=== PATIENT | female | born 1950 | race Caucasian/White ===

== ENCOUNTER 2016-06-18 16:04 | Inpatient (IN) | payer OTHER ==
[2016-06-18] MEDS ORDERED: ONDANSETRON 4 MG TAB.RAPDIS PO ONE (16:51)
--- NOTE | 2016-06-18 16:51 | ER Document Report ---
ED Medical Screen (RME) - General Stated Complaint: ABDOMINAL PAIN,VOMITING,FEVER Time seen by provider: 16:48 Mode of Arrival: Wheelchair Information source: Patient Notes: 65-year-old female presents to ED for abdominal pain constipation. She states she's torn up with fever has previous colon cancer been in remission for 5 years. She has a pain in the middle of her abdomen where she has a hernia level is 3-1/2. States she has vomited 3 or 4 times today. States she had some little round balls of BM this morning. She says she was had a hemicolectomy. I have greeted and performed a rapid initial assessment of this patient. A comprehensive ED assessment and evaluation of the patient, analysis of test results and completion of medical decision making process will be conducted by an additional ED providers. TRAVEL OUTSIDE OF THE [place] IN LAST 30 DAYS: No - Related Data Allergies/Adverse Reactions: Penicillins Allergy (Verified 03/25/16 11:43) Past Medical History Past Surgical History: Reports: Hx Thyroid Surgery - Immunizations Hx Diphtheria, Pertussis, Tetanus Vaccination: No Physical Exam - Vital signs Vitals: Temp Pulse Resp BP Pulse Ox 97.6 F 69 16 186/89 H 95 06/18/16 16:46 06/18/16 16:46 06/18/16 16:46 06/18/16 16:46 06/18/16 16:46 Course - Vital Signs Vital signs: Temp Pulse Resp BP Pulse Ox 97.6 F 69 16 186/89 H 95 06/18/16 16:46 06/18/16 16:46 06/18/16 16:46 06/18/16 16:46 06/18/16 16:46
[2016-06-18] MEDS ORDERED: IBUPROFEN 600 MG TABLET PO ONE (16:52)
[2016-06-18 17:25] LABS: ABSOLUTE BASOPHILS # (AUTO) 0.1 10^3/uL (0.0-0.2); ABSOLUTE LYMPHOCYTES (AUTO) 1.2 10^3/uL (0.5-4.7); ABSOLUTE MONOCYTES (AUTO) 0.7 10^3/uL (0.1-1.4); ABSOLUTE NEUT (AUTO) 17.5 10^3/uL (1.7-8.2); BASOPHILS % (AUTO) 0.3 % (0-2); EOSINOPHILS % (AUTO) 0.1 % (0-6); HEMATOCRIT 47.8 % (36.0-47.0); HEMOGLOBIN 15.9 g/dL (12.0-15.5); HGB HCT DIFFERENCE -0.1; MEAN CORPUSCULAR HEMOGLOBIN 32.3 pg (27.0-33.4); MEAN CORPUSCULAR HGB CONC 33.3 g/dL (32.0-36.0); MEAN CORPUSCULAR VOLUME 97 fl (80-97); MONOCYTES % (AUTO) 3.4 % (3-13); RED BLOOD COUNT 4.93 10^6/uL (3.72-5.28); RED CELL DISTRIBUTION WIDTH 15.1 % (11.5-14.0); SEGMENTED NEUTROPHILS % (AUTO) 90.2 % (42-78); WHITE BLOOD COUNT 19.5 10^3/uL (4.0-10.5)
[2016-06-18 17:30] LABS: APPEARANCE,URINE SLIGHTLY-CLOUDY; BILIRUBIN,URINE NEGATIVE (NEGATIVE); GLUCOSE, URINE NEGATIVE (NEGATIVE); KETONES,URINE 80 mg/dL (NEGATIVE); LEUKOCYTE ESTERASE,URINE NEGATIVE (NEGATIVE); NITRITE,URINE NEGATIVE (NEGATIVE); PROTEIN,URINE 100 mg/dL (NEGATIVE); URINE SPECIFIC GRAVITY 1.024
[2016-06-18 17:37] LABS: ALANINE AMINOTRANSFERASE 25 U/L (9-52); ALBUMIN 5.1 g/dL (3.5-5.0); ALKALINE PHOSPHATASE 88 U/L (38-126); ANION GAP 16 (5-19); ASPARTATE AMINO TRANSFERASE 19 U/L (14-36); BILIRUBIN,DIRECT 0.2 mg/dL (0.0-0.4); BILIRUBIN,TOTAL 0.8 mg/dL (0.2-1.3); BLOOD UREA NITROGEN 9 mg/dL (7-20); CALCIUM 10.7 mg/dL (8.4-10.2); CARBON DIOXIDE 26 mmol/L (22-30); CHLORIDE 97 mmol/L (98-107); CREATININE RESULT 0.62 mg/dL (0.52-1.25); GLUCOSE 195 mg/dL (75-110); POTASSIUM 4.4 mmol/L (3.6-5.0); TOTAL PROTEIN 7.8 g/dL (6.3-8.2)
[2016-06-18] MEDS ORDERED: NORMAL SALINE 1000 ML 1,000 ML IV ONE (23:01)
[2016-06-18] MEDS ORDERED: ONDANSETRON HCL INJ/PF 4 MG/2 ML SDV IV ONE (23:47)
[2016-06-18] MEDS ORDERED: IPRATROPIUM/ALBUTEROL 0.5-2.5 MG/3 ML AMPUL NEB ONE (23:47)
[2016-06-19] MEDS ORDERED: MIDAZOLAM 2 MG/2 ML INJ IV ONE (01:46)
[2016-06-19] MEDS ORDERED: RINGERS SOLUTION,LACTATED 1,000 ML IV PRN (02:13)
--- NOTE | 2016-06-19 02:19 | ER Document Report ---
ED General - General Chief Complaint: Abdominal Pain Stated Complaint: ABDOMINAL PAIN,VOMITING,FEVER Mode of Arrival: Wheelchair Notes: Patient is a 65-year-old female with past medical history of colon cancer in remission for the past 5 years who did undergo a right hemicolectomy as part of her management of colon cancer who presents with 24 hours of progressively worsening nausea, bilious vomiting and abdominal pain. Does describe abdominal pain is a diffuse, mild, cramping pain. Nothing improves or worsens the pain. She has not been able to tolerate any oral intake today secondary to her vomiting. Denies a history of similar symptoms in the past. She has not seen her primary care doctor regarding today's concerns. TRAVEL OUTSIDE OF THE [place] IN LAST 30 DAYS: No - Related Data Allergies/Adverse Reactions: Penicillins Allergy (Verified 06/18/16 16:50) Past Medical History - General Information source: Patient - Social History Smoking Status: Current Every Day Smoker Chew tobacco use (# tins/day): No Frequency of alcohol use: None Drug Abuse: None Lives with: Spouse/Significant other Family History: CAD, COPD Patient has suicidal ideation: No Patient has homicidal ideation: No Renal/ Medical History: Denies: Hx Peritoneal Dialysis Past Surgical History: Reports: Hx Thyroid Surgery - Immunizations Hx Diphtheria, Pertussis, Tetanus Vaccination: No Review of Systems - Review of Systems Notes: Constitutional: Negative for fever. HENT: Negative for sore throat. Eyes: Negative for visual changes. Cardiovascular: Negative for chest pain. Respiratory: Negative for shortness of breath. Gastrointestinal: Positive for abdominal pain and vomiting Genitourinary: Negative for dysuria. Musculoskeletal: Negative for back pain. Skin: Negative for rash. Neurological: Negative for headaches, weakness or numbness. 10 point ROS negative except as marked above and in HPI. Physical Exam - Vital signs Vitals: Temp Pulse Resp BP Pulse Ox 97.6 F 69 16 186/89 H 95 06/18/16 16:46 06/18/16 16:46 06/18/16 16:46 06/18/16 16:46 06/18/16 16:46 Interpretation: Hypertensive Notes: PHYSICAL EXAMINATION: GENERAL: Appears mildly comfortable but in no acute distress HEAD: Atraumatic, normocephalic. EYES: Pupils equal round and reactive to light, extraocular movements intact, sclera anicteric, conjunctiva are normal. ENT: nares patent, oropharynx clear without exudates. Dry mucous membranes. NECK: Normal range of motion, supple without lymphadenopathy LUNGS: Breath sounds clear to auscultation bilaterally and equal. No wheezes rales or rhonchi. HEART: Regular rate and rhythm without murmurs ABDOMEN: Soft, diffuse mild tenderness to palpation without rebound or guarding. Diminished bowel sounds. EXTREMITIES: Normal range of motion, no pitting or edema. No cyanosis. NEUROLOGICAL: No focal neurological deficits. Moves all extremities spontaneously and on command. PSYCH: Normal mood, normal affect. SKIN: Warm, Dry, normal turgor, no rashes or lesions noted. Course - Re-evaluation Re-evalutation: 06/19/16 02:14 Patient presents with signs and symptoms that are clinically consistent with an acute bowel obstruction likely mechanical in nature given her history of right hemicolectomy in the setting of prior colon cancer. Patient did have diminished bowel sounds and examined diffuse mild tenderness without rebound or guarding. Laboratories notable for prominent leukocytosis but are otherwise unremarkable. CT scan of the abdomen and pelvis with IV contrast obtained. This did demonstrate a mechanical small bowel structure with proximal small bowel dilation. An NG tube will be placed with Versed sedation. I discussed this case with the surgeon phone technician who will admit. - Vital Signs Vital signs: Temp Pulse Resp BP Pulse Ox 97.6 F 69 16 186/89 H 95 06/18/16 16:46 06/18/16 16:46 06/18/16 16:46 06/18/16 16:46 06/18/16 16:46 - Laboratory Result Diagrams: 06/18/16 17:10 06/18/16 17:10 Laboratory results interpreted by me: 06/18/16 06/18/16 06/18/16 17:05 17:10 17:10 WBC 19.5 H Hgb 15.9 H Hct 47.8 H RDW 15.1 H Seg Neutrophils % 90.2 H Lymphocytes % 6.0 L Absolute Neutrophils 17.5 H Chloride 97 L Glucose 195 H Calcium 10.7 H Albumin 5.1 H Urine Protein 100 H Urine Ketones 80 H Urine Urobilinogen 2.0 H - Diagnostic Test Radiology reviewed: Reports reviewed Discharge - Discharge Clinical Impression: Bowel obstruction Qualifiers: Intestinal obstruction type: obstruction due to adhesions Qualified Code(s): K56.5 - Intestinal adhesions [bands] with obstruction (postprocedural) ( postinfection) Condition: Fair Disposition: ADMITTED INPATIENT Admitting Provider: Surgicalist - [facility] Admitted: Surgical Floor Referrals: PREET GOLDSMITH MD [Primary Care Provider] - Follow up as needed
[2016-06-19] MEDS ORDERED: LIDOCAINE 2% JELLY 5 ML TUBE TOP ONE (02:43)
[2016-06-19] MEDS: METRONIDAZOLE 500 MG/NS RTU 100 ML IV SCH ×4 (03:07→23:37)
[2016-06-19] MEDS: HYDROMORPHONE HCL INJ/PF 2 MG/ML AMPULE IV PRN ×4 (03:11→23:37)
[2016-06-19] MEDS: LEVOFLOXACIN 500 MG/D5W RTU 500 MG/100 ML RTUPB IV SCH (05:54)
[2016-06-19 06:23] LABS: ABSOLUTE LYMPHOCYTES (AUTO) 0.8 10^3/uL (0.5-4.7); ABSOLUTE MONOCYTES (AUTO) 0.4 10^3/uL (0.1-1.4); ABSOLUTE NEUT (AUTO) 7.7 10^3/uL (1.7-8.2); BASOPHILS % (AUTO) 0.3 % (0-2); HEMATOCRIT 39.2 % (36.0-47.0); HGB HCT DIFFERENCE 1.3; LYMPHOCYTES % (AUTO) 9.3 % (13-45); MEAN CORPUSCULAR HEMOGLOBIN 33.1 pg (27.0-33.4); MEAN CORPUSCULAR HGB CONC 34.4 g/dL (32.0-36.0); MEAN CORPUSCULAR VOLUME 96 fl (80-97); MONOCYTES % (AUTO) 4.5 % (3-13); RED BLOOD COUNT 4.07 10^6/uL (3.72-5.28); RED CELL DISTRIBUTION WIDTH 15.1 % (11.5-14.0); SEGMENTED NEUTROPHILS % (AUTO) 85.9 % (42-78); WHITE BLOOD COUNT 8.9 10^3/uL (4.0-10.5)
[2016-06-19 06:29] LABS: ANION GAP 11 (5-19); BLOOD UREA NITROGEN 12 mg/dL (7-20); CALCIUM 9.4 mg/dL (8.4-10.2); CARBON DIOXIDE 25 mmol/L (22-30); CHLORIDE 104 mmol/L (98-107); CREATININE RESULT 0.61 mg/dL (0.52-1.25); GLUCOSE 136 mg/dL (75-110); SODIUM 139.5 mmol/L (137-145)
[2016-06-19 06:30] LABS: HEMOGLOBIN 13.5 g/dL (12.0-15.5)
--- NOTE | 2016-06-19 08:10 | EKG REPORT ---
SEVERITY:- ABNORMAL ECG - SINUS RHYTHM LEFT AXIS DEVIATION PROBABLE ANTEROSEPTAL INFARCT, AGE INDETERM : Confirmed by: Colin Navarro MD 19-Jun-2016 08:09:21
[2016-06-19] MEDS: FAMOTIDINE INJ/PF 20 MG/2 ML SDV IV SCH ×2 (09:52→22:19)
[2016-06-19] MEDS: ENOXAPARIN SODIUM INJ 40 MG/0.4 ML DISP.SYRIN SUBCUT SCH (09:53)
[2016-06-19] MEDS ORDERED: LEVOFLOXACIN 500 MG/D5W RTU 500 MG/100 ML RTUPB IV SCH (10:00)
[2016-06-19] MEDS: RINGERS SOLUTION,LACTATED 1,000 ML IV PRN (14:34)
--- NOTE | 2016-06-19 18:38 | HISTORY AND PHYSICAL E ---
History and Physical NAME: SUDHEER MADERA : 1950 AGE: 65Y ADMITTED: 06/19/2016 ROOM: 210 REASON FOR ADMISSION: Small bowel obstruction characterized by abdominal pain, vomiting, and fever. HISTORY OF PRESENT ILLNESS: This 64-year-old female was in her usual state of health until the day of admission when she complained of mid abdominal pain accompanied by 3 or 4 episodes of vomiting. The patient had had small bowel movements morning of admission but has had no BM or flatus since. The patient has had a right hemicolectomy in the past for cancer and has had follow-up colonoscopies but stated that the pain was reminiscent of the pain she had experienced when she developed cancer 5 years ago. The patient presented to the Emergency Room because of the vomiting 3 or 4 times and the gaseousness, but the pain which was 8 out of 10 began as she arrived in the Emergency Room. The patient was examined and found to have stable vital signs. Abdominal exam revealed no tenderness, guarding, rebound, or peritoneal signs, but the patient's white count was noted to be 19,500. The patient then underwent a CT scan of the abdomen which revealed mechanical small bowel obstruction with dilatation of the proximal small bowel with normal distal small bowel. The patient has a small umbilical hernia that is not incarcerated and a previous right hemicolectomy. For this reason, the patient was admitted to my service for conservative management and possible surgical intervention. PAST MEDICAL HISTORY: The patient has no history of diabetes mellitus, hypertension, cardiac, renal, pulmonary, liver disease or bleeding tendencies. No history of anesthesia problems in the family. ALLERGIES: The patient is allergic to PENICILLIN. PAST SURGICAL HISTORY: As per history of present illness, the patient is status post right hemicolectomy for cancer. REVIEW OF SYSTEMS: The patient has no symptoms referable to the constitutional system. ENT, cardiovascular, respiratory systems are negative. The patient has symptoms as in history of present illness as gastrointestinal system. The patient denies any symptoms referable to the genitourinary, musculoskeletal, integumentary, lymphocytic, endocrine, or psychiatric systems. PHYSICAL EXAMINATION: GENERAL: Physical examination reveals a 65-year-old female who is normally nourished, normally developed who is in no acute distress. HEENT: There is no conjunctival pallor or scleral icterus. Mucous membranes are moist and pink. NECK: Supple without nodes, masses, thyroid, JVD, or bruits. Trachea is midline. CHEST: Chest wall shows good excursions. The lungs are clear anteriorly with good entry bilaterally. CARDIOVASCULAR SYSTEM: S1, S2 audible without murmurs or gallops. ABDOMEN: Patient's abdomen is soft. Bowel sounds are hyperactive, but there was no tenderness, guarding or rebound. No organomegaly or masses are noted. The patient has a small umbilical hernia that is not incarcerated. EXTREMITIES: Full range of motion. IMPRESSION: Small bowel obstruction. PLAN: Patient will undergo NG tube insertion with IV fluids. We will keep her n.p.o. We will encourage ambulation and out of bed in the chair to promote conservative management of her small bowel obstruction. Should she not improve, then exploratory laparotomy will be recommended. DICTATING PHYSICIAN: JORDAN HO M.D. [id number] PHY#: [id number] ID: [id number] JOB#: [id number] ACCT: [id number] cc: >
[2016-06-20] MEDS: HYDROMORPHONE HCL INJ/PF 2 MG/ML AMPULE IV PRN ×3 (03:32→14:56)
[2016-06-20] MEDS: LEVOFLOXACIN 500 MG/D5W RTU 500 MG/100 ML RTUPB IV SCH (04:48)
[2016-06-20] MEDS: METRONIDAZOLE 500 MG/NS RTU 100 ML IV SCH ×4 (06:00→23:17)
[2016-06-20 07:25] LABS: ABSOLUTE BASOPHILS # (AUTO) 0.1 10^3/uL (0.0-0.2); ABSOLUTE LYMPHOCYTES (AUTO) 0.9 10^3/uL (0.5-4.7); ABSOLUTE MONOCYTES (AUTO) 0.4 10^3/uL (0.1-1.4); ABSOLUTE NEUT (AUTO) 10.7 10^3/uL (1.7-8.2); HEMATOCRIT 37.6 % (36.0-47.0); HEMOGLOBIN 12.7 g/dL (12.0-15.5); HGB HCT DIFFERENCE 0.5; LYMPHOCYTES % (AUTO) 7.6 % (13-45); MEAN CORPUSCULAR HEMOGLOBIN 32.9 pg (27.0-33.4); MEAN CORPUSCULAR HGB CONC 33.8 g/dL (32.0-36.0); MEAN CORPUSCULAR VOLUME 97 fl (80-97); MONOCYTES % (AUTO) 3.3 % (3-13); RED BLOOD COUNT 3.86 10^6/uL (3.72-5.28); RED CELL DISTRIBUTION WIDTH 15.2 % (11.5-14.0); SEGMENTED NEUTROPHILS % (AUTO) 88.1 % (42-78); WHITE BLOOD COUNT 12.2 10^3/uL (4.0-10.5)
[2016-06-20] MEDS ORDERED: ALBUTEROL SULFATE 0.083% NEB 2.5 MG/3 ML AMPUL NEB PRN (08:48)
[2016-06-20] MEDS: LEVOTHYROXINE SODIUM 0.1 MG TABLET PO SCH (10:12)
[2016-06-20] MEDS: FAMOTIDINE INJ/PF 20 MG/2 ML SDV IV SCH ×2 (10:13→21:39)
[2016-06-20] MEDS: LEVOTHYROXINE SODIUM 0.075 MG TABLET PO SCH (10:13)
[2016-06-20] MEDS: ENOXAPARIN SODIUM INJ 40 MG/0.4 ML DISP.SYRIN SUBCUT SCH (10:16)
[2016-06-20] MEDS: IPRATROPIUM/ALBUTEROL 120 PUFF/4 GM MDI IH SCH ×4 (10:18→21:39)
[2016-06-20] MEDS ORDERED: FLUOXETINE HCL 20 MG CAPSULE PO ONE (11:00)
[2016-06-20] MEDS: RINGERS SOLUTION,LACTATED 1,000 ML IV PRN ×2 (11:54→23:18)
[2016-06-20] MEDS ORDERED: LEVOTHYROXINE SODIUM 175 MG PO SCH (22:00)
--- NOTE | 2016-06-21 00:18 | PROGRESS NOTE E ---
Progress Note NAME: SUDHEER MADERA : 1950 AGE: 65Y DATE: 06/20/2016 ROOM: 210 OBJECTIVE: GENERAL: The patient is lying comfortably in bed. Has not had a bowel movement or passed any gas yet. VITAL SIGNS: Blood pressure 144/85, temperature 99, pulse 74, respirations 18, saturations 99% on room air. LUNGS: The patient's lungs are clear bilaterally, equal entry. Pulses regular. ABDOMEN: Soft with hypoactive bowel sounds, nontender. Umbilical hernia remains reduced. ASSESSMENT: DAY 2 OF CONSERVATIVE MANAGEMENT FOR SMALL BOWEL OBSTRUCTION. PLAN: If the patient does not open up within the next 24 hours, then exploratory lap for small bowel obstruction will be indicated. I have discussed this with the patient who is in agreement. DICTATING PHYSICIAN: JORDAN HO M.D. [id number] PHY#: [id number] ID: [id number] JOB#: [id number] ACCT: [id number] cc: >
[2016-06-21] MEDS: HYDROMORPHONE HCL INJ/PF 2 MG/ML AMPULE IV PRN ×4 (01:27→20:34)
[2016-06-21] MEDS: LEVOFLOXACIN 500 MG/D5W RTU 500 MG/100 ML RTUPB IV SCH (04:46)
[2016-06-21] MEDS: METRONIDAZOLE 500 MG/NS RTU 100 ML IV SCH ×4 (06:14→23:33)
[2016-06-21] MEDS: ENOXAPARIN SODIUM INJ 40 MG/0.4 ML DISP.SYRIN SUBCUT SCH (10:16)
[2016-06-21] MEDS: FAMOTIDINE INJ/PF 20 MG/2 ML SDV IV SCH ×2 (10:17→21:17)
--- NOTE | 2016-06-21 10:52 | PDOC PROGRESS REPORT ---
Subjective Progress Note for:: 06/21/16 Subjective:: feels better. had bowel movement. still feel midly distended. Physical Exam Vital Signs: Temp Pulse Resp BP Pulse Ox 98.9 F 73 16 141/81 H 97 06/21/16 07:54 06/21/16 09:12 06/21/16 09:12 06/21/16 07:54 06/21/16 09:12 Intake & Output 06/20/16 06/21/16 06/22/16 06:59 06:59 06:59 Intake Total 1325 1500 Output Total 850 650 Balance 475 850 General appearance: PRESENT: no acute distress, cooperative Respiratory exam: PRESENT: clear to auscultation gustavo Cardiovascular exam: PRESENT: RRR GI/Abdominal exam: PRESENT: other - soft, mildly distended, mild mid abdominal tenderness with no peritoneal signs. Results Laboratory Results: 06/20/16 06:07 06/19/16 06:05 Impressions: Abdomen/Pelvis CT 06/18/16 23:01 IMPRESSION: 1. MECHANICAL SMALL BOWEL OBSTRUCTION. PROXIMAL SMALL BOWEL DILATED AND DISTAL SMALL BOWEL NOT DISTENDED. 2. SMALL UMBILICAL HERNIA. 3. PREVIOUS RIGHT HEMICOLECTOMY. Chest X-Ray 06/19/16 00:00 IMPRESSION: NO ACUTE RADIOGRAPHIC FINDING IN THE CHEST. Abdomen X-Ray 06/21/16 00:00 IMPRESSION: Ileus or partial small bowel obstruction. Assessment & Plan - Diagnosis (1) Small bowel obstruction Is this a current diagnosis for this admission?: YesPlan: xrays are concerning for sbo but pt just had bm and feels better. still mildly distended and pt not back to baseline yet. hold off xlap in light of bm. repeat xrays in am.
[2016-06-21] MEDS: LEVOTHYROXINE SODIUM 0.1 MG TABLET PO SCH (14:05)
[2016-06-21] MEDS: FLUOXETINE HCL 20 MG CAPSULE PO SCH (14:05)
[2016-06-21] MEDS: IPRATROPIUM/ALBUTEROL 120 PUFF/4 GM MDI IH SCH ×4 (14:05→21:16)
[2016-06-21] MEDS: LEVOTHYROXINE SODIUM 0.075 MG TABLET PO SCH (14:05)
[2016-06-21] MEDS: RINGERS SOLUTION,LACTATED 1,000 ML IV PRN (23:40)
[2016-06-22] MEDS: HYDROMORPHONE HCL INJ/PF 2 MG/ML AMPULE IV PRN (04:44)
[2016-06-22] MEDS: METRONIDAZOLE 500 MG/NS RTU 100 ML IV SCH ×3 (05:29→19:22)
[2016-06-22] MEDS: LEVOFLOXACIN 500 MG/D5W RTU 500 MG/100 ML RTUPB IV SCH (06:33)
[2016-06-22] MEDS: FAMOTIDINE INJ/PF 20 MG/2 ML SDV IV SCH (09:57)
[2016-06-22] MEDS: LEVOTHYROXINE SODIUM 0.1 MG TABLET PO SCH (09:58)
[2016-06-22] MEDS: FLUOXETINE HCL 20 MG CAPSULE PO SCH (09:58)
[2016-06-22] MEDS: IPRATROPIUM/ALBUTEROL 120 PUFF/4 GM MDI IH SCH ×3 (09:58→19:22)
[2016-06-22] MEDS: LEVOTHYROXINE SODIUM 0.075 MG TABLET PO SCH (09:58)
[2016-06-22] MEDS: ENOXAPARIN SODIUM INJ 40 MG/0.4 ML DISP.SYRIN SUBCUT SCH (09:58)
[2016-06-22] MEDS: RINGERS SOLUTION,LACTATED 1,000 ML IV PRN (10:39)
[2016-06-22] MEDS: FLUTICASONE/SALMETEROL DISKUS 250-50 MCG/DOSE IH SCH (12:17)
[2016-06-22] MEDS ORDERED: LIDOCAINE 2% INJ-PF (20 MG/ML) 10 ML AMPUL ONE (15:18)
[2016-06-22] MEDS ORDERED: ROCURONIUM BROMIDE INJ 50 MG/5 ML VIAL IV ONE (15:18)
[2016-06-22] MEDS ORDERED: SUCCINYLCHOLINE CHLORIDE INJ 200 MG/10 ML VIAL ONE (15:18)
[2016-06-22] MEDS ORDERED: ONDANSETRON HCL INJ/PF 4 MG/2 ML SDV ONE (15:18)
[2016-06-22] MEDS ORDERED: DEXAMETHASONE SOD PHOSPHATE INJ 4 MG/1 ML VIAL ONE (15:18)
[2016-06-22] MEDS ORDERED: NEOSTIGMINE METHYLSULFATE 10 MG/10 ML VIAL ONE (15:18)
[2016-06-22] MEDS ORDERED: GLYCOPYRROLATE INJ 0.4 MG/2 ML VIAL ONE (15:18)
[2016-06-22] MEDS ORDERED: FENTANYL CITRATE INJ/PF 250 MCG/5 ML AMPULE ONE ×2 (15:32→19:07)
[2016-06-22] MEDS ORDERED: EPHEDRINE SULFATE INJ 50 MG/1 ML AMPULE ONE ×2 (15:32→19:07)
[2016-06-22] MEDS ORDERED: MIDAZOLAM 2 MG/2 ML INJ ONE ×2 (15:32→19:07)
[2016-06-22] MEDS ORDERED: MORPHINE SULFATE 10 MG/ML INJ ONE ×2 (15:33→19:08)
[2016-06-22] MEDS ORDERED: ACETAMINOPHEN 0 ML IV ONE (15:33)
[2016-06-22] MEDS ORDERED: PROPOFOL INJ 200 MG/20 ML VIAL IV ONE ×2 (15:33→19:08)
[2016-06-22 17:34] LABS: ABSOLUTE EOSINOPHILS # (AUTO) 0.1 10^3/uL (0.0-0.6); ABSOLUTE LYMPHOCYTES (AUTO) 1.1 10^3/uL (0.5-4.7); ABSOLUTE MONOCYTES (AUTO) 0.8 10^3/uL (0.1-1.4); ABSOLUTE NEUT (AUTO) 7.9 10^3/uL (1.7-8.2); BASOPHILS % (AUTO) 0.3 % (0-2); EOSINOPHILS % (AUTO) 0.5 % (0-6); HEMOGLOBIN 12.8 g/dL (12.0-15.5); HGB HCT DIFFERENCE 0.4; LYMPHOCYTES % (AUTO) 11.1 % (13-45); MEAN CORPUSCULAR HEMOGLOBIN 32.4 pg (27.0-33.4); MEAN CORPUSCULAR HGB CONC 33.6 g/dL (32.0-36.0); MEAN CORPUSCULAR VOLUME 96 fl (80-97); MONOCYTES % (AUTO) 8.5 % (3-13); RED BLOOD COUNT 3.95 10^6/uL (3.72-5.28); RED CELL DISTRIBUTION WIDTH 15.1 % (11.5-14.0); SEGMENTED NEUTROPHILS % (AUTO) 79.6 % (42-78); WHITE BLOOD COUNT 9.9 10^3/uL (4.0-10.5)
[2016-06-22 17:58] LABS: BLOOD UREA NITROGEN 6 mg/dL (7-20); CALCIUM 9.1 mg/dL (8.4-10.2); CARBON DIOXIDE 17 mmol/L (22-30); CREATININE RESULT 0.58 mg/dL (0.52-1.25); GLUCOSE 70 mg/dL (75-110); POTASSIUM 3.1 mmol/L (3.6-5.0)
[2016-06-22 18:08] LABS: CHLORIDE 100 mmol/L (98-107); SODIUM 137.6 mmol/L (137-145)
[2016-06-22 18:20] LABS: ANION GAP 21 (5-19)
[2016-06-22] MEDS ORDERED: DEXMEDETOMIDINE INJ 80 MCG/20 ML VIAL IV ONE (19:08)
[2016-06-22] MEDS ORDERED: ACETAMINOPHEN 100 ML IV ONE (19:08)
[2016-06-22] MEDS ORDERED: BUPIVACAINE HCL 0.5 % INJ/PF 30 ML SDV INJ ONE (19:50)
[2016-06-22] MEDS ORDERED: BUPIVACAINE HCL 0.5 % INJ/PF 30 ML SDV ONE (19:52)
[2016-06-22] MEDS ORDERED: MEPERIDINE HCL/PF INJ 25 MG/1 ML DISP.SYRIN IV PRN (21:23)
[2016-06-22] MEDS ORDERED: ONDANSETRON HCL INJ/PF 4 MG/2 ML SDV IV PRN (21:23)
[2016-06-22] MEDS ORDERED: PROMETHAZINE HCL INJ 25 MG/1 ML VIAL IV PRN ×2 (21:23)
[2016-06-22] MEDS ORDERED: FENTANYL CITRATE INJ/PF 100 MCG/2 ML AMPUL IV PRN ×3 (21:23)
[2016-06-22] MEDS ORDERED: DIPHENHYDRAMINE HCL 50 MG/ML VIAL IV PRN (21:23)
[2016-06-22] MEDS ORDERED: MORPHINE SULFATE 10 MG/ML INJ IV PRN (21:23)
--- NOTE | 2016-06-22 21:46 | Brief Operative Note ---
BRIEF OPERATIVE REPORT DATE OF SURGERY: 06/22/16 TIME OF SURGERY: 21:00 PREOPERATIVE DIAGNOSIS: Small Bowel Obstruction POSTOPERATIVE DIAGNOSIS: Same SURGEON: JORDAN HO FINDINGS: SBO secondary to adhesions COMPLICATIONS: None ESTIMATED BLOOD LOSS: 100cc TISSUE REMOVED OR ALTERED: None TECHNICAL PROCEDURE: Exploratory Laparotomy for SBO, with lysis of adhesions.
--- NOTE | 2016-06-22 22:28 | OPERATIVE REPORT E ---
Operative Report NAME: SUHDEER MADERA : 1950 AGE: 65Y DATE OF SURGERY: 06/22/2016 ROOM: 210 PREOPERATIVE DIAGNOSIS: Small bowel obstruction. POSTOPERATIVE DIAGNOSIS: Small bowel obstruction secondary to multiple adhesions. OPERATION: Exploratory laparotomy for small bowel obstruction with extensive lysis of adhesions and decompression of the small bowel. SURGEON: JORDAN HO M.D. ANESTHESIA: General. REPLACEMENT: Crystalloids. DRAINS: None. COMPLICATIONS: None. CONDITION: Stable. FINDINGS: The patient had multiple intraabdominal adhesions which were causing proximal small bowel obstruction. The patient also had 3 ventral hernias which were repaired on the way out as we closed the fascia. INDICATION FOR PROCEDURE: This 65-year-old female was in her usual state of health when she developed nausea, vomiting or abdominal pain and was admitted to the hospital on 06/19/2016. The patient was on NG tube decompression, IV fluids and n.p.o. She continued to have markedly dilated loops of small bowel in spite of having 3 bowel movements in the last 48 hours. Because of the persistent dilatation on the x-ray of small bowel loops, the patient was brought to the operating room for definitive intervention. PROCEDURE: The patient was brought to the operating suite and placed in a supine position on the operating room table. Monitoring devices were attached and IV sedation was administered, followed by the induction of general endotracheal anesthesia. The patient's abdomen was then prepped and draped in the usual sterile manner, and then an incision was made just above the umbilicus. The incision was carried through the skin and subcutaneous tissue down to the linea alba. The patient's umbilical hernia was noted and we placed two 0-Vicryl sutures on either side of the umbilical hernia. We opened the hernia sac and placed a trocar through the hernia sac, through the umbilical hernia defect into the abdomen and insufflated the abdomen. We noted that there were bowel loops that were attached to the anterior abdominal wall and there was no evidence of any single adhesion that we could visualize laparoscopically. We then took out the laparoscope and abandoned any further attempts to do this laparoscopically and a midline incision was made. The incision was carried from the epigastric region to the suprapubic region. The incision was carried through the skin and subcutaneous tissue down to the linea alba and the peritoneum was opened. We eviscerated the entire small bowel and noted jejunal adhesion causing obstruction. This jejunal-jejunal adhesion was taken down using sharp dissection which released the obstruction. We then ran the bowel from the ligament of Treitz to the ileocecal junction and we lysed all adhesions between the jejunal-jejunal, jejunal-ileal as well as ileocolic and jejunal colic. After taking down all adhesions, we ran the bowel from the ligament of Treitz to the ileocecal junction and noted no further adhesions. We then placed our pursestring suture in the mid jejunum and made an opening in the jejunum at the antimesenteric border. We inserted a nasogastric tube and directed it distally and proximally, and we decompressed the small bowel. We then removed the NG tube and closed the pursestring suture and then imbricated it using 3-0 silk. After decompressing the bowel, we returned the bowel to the abdominal cavity and proceeded to close the abdomen. The fascia was closed using #1 PDS and once this was completed, we obviously repaired all the 3 ventral hernias that were encountered at the time of opening the abdomen. After closing the fascia, we then closed the skin using skin edgard. The patient tolerated the procedure well. Sponge and instrument counts were correct. The patient was discharged to the PACU in stable condition. DICTATING PHYSICIAN: JORDAN HO M.D. [id number] PHY#: [id number] ID: [id number] JOB#: [id number] ACCT: [id number] cc:JORDAN HO M.D. >
[2016-06-22] MEDS: FENTANYL CITRATE INJ/PF 100 MCG/2 ML AMPUL ONE ×2 (22:30→22:40)
[2016-06-23] MEDS: HYDROMORPHONE HCL INJ/PF 2 MG/ML AMPULE IV PRN ×7 (00:22→23:29)
[2016-06-23] MEDS: FAMOTIDINE INJ/PF 20 MG/2 ML SDV IV SCH ×2 (03:24→10:05)
[2016-06-23] MEDS: FLUTICASONE/SALMETEROL DISKUS 250-50 MCG/DOSE IH SCH ×3 (03:24→21:49)
[2016-06-23] MEDS: IPRATROPIUM/ALBUTEROL 120 PUFF/4 GM MDI IH SCH ×5 (03:24→21:49)
[2016-06-23] MEDS: METRONIDAZOLE 500 MG/NS RTU 100 ML IV SCH ×5 (03:24→23:30)
[2016-06-23] MEDS: RINGERS SOLUTION,LACTATED 1,000 ML IV PRN ×2 (04:26→23:39)
[2016-06-23] MEDS: LEVOFLOXACIN 500 MG/D5W RTU 500 MG/100 ML RTUPB IV SCH (06:29)
[2016-06-23] MEDS: LEVOTHYROXINE SODIUM 0.075 MG TABLET PO SCH (10:04)
[2016-06-23] MEDS: FLUOXETINE HCL 20 MG CAPSULE PO SCH (10:05)
[2016-06-23] MEDS: ENOXAPARIN SODIUM INJ 40 MG/0.4 ML DISP.SYRIN SUBCUT SCH (10:06)
[2016-06-23] MEDS: LEVOTHYROXINE SODIUM 0.1 MG TABLET PO SCH (10:30)
[2016-06-23] MEDS ORDERED: NORMAL SALINE 1000 ML 1,000 ML IV ONE (18:15)
[2016-06-24] MEDS: LEVOFLOXACIN 500 MG/D5W RTU 500 MG/100 ML RTUPB IV SCH (05:06)
[2016-06-24] MEDS: HYDROMORPHONE HCL INJ/PF 2 MG/ML AMPULE IV PRN ×4 (05:20→20:46)
[2016-06-24] MEDS: METRONIDAZOLE 500 MG/NS RTU 100 ML IV SCH ×3 (06:30→17:42)
[2016-06-24] MEDS: FLUTICASONE/SALMETEROL DISKUS 250-50 MCG/DOSE IH SCH ×2 (10:03→22:31)
[2016-06-24] MEDS: LEVOTHYROXINE SODIUM 0.075 MG TABLET PO SCH (10:03)
[2016-06-24] MEDS: LEVOTHYROXINE SODIUM 0.1 MG TABLET PO SCH (10:03)
[2016-06-24] MEDS ORDERED: FLUOXETINE HCL 20 MG CAPSULE PO ONE (11:00)
[2016-06-24] MEDS: ENOXAPARIN SODIUM INJ 40 MG/0.4 ML DISP.SYRIN SUBCUT SCH (11:21)
[2016-06-24] MEDS: IPRATROPIUM/ALBUTEROL 120 PUFF/4 GM MDI IH SCH ×4 (11:21→22:32)
[2016-06-24] MEDS: RINGERS SOLUTION,LACTATED 1,000 ML IV PRN ×2 (11:49→22:21)
--- NOTE | 2016-06-24 21:08 | PROGRESS NOTE E ---
Progress Note NAME: SUDHEER MADERA : 1950 AGE: 65Y DATE: 06/24/2016 ROOM: 210 SUBJECTIVE: The patient denies abdominal pain. He denies flatus. Reports to have been able to eat. Large amount of fluids since last night. OBJECTIVE: VITAL SIGNS: Stable. The patient is afebrile. All vital signs to be in normal limits. Temperature 98.7, pulse 82, blood pressure 105/56, respirations 17, saturation 96% on room air. I's and O's in the past 24 h. intake 100 and output 1200, which is 600 for urine and 600 for nasogastric tube. LUNGS: Clear to auscultation bilaterally. HEART: Regular rate and rhythm. ABDOMEN: Distended. Normal sounds appreciated and nontender. Midline incision covered by dressing, clean and intact. LABORATORY DATA: Electrolytes show low potassium of 3.1 with BUN and creatinine of 21 and 6. CBC within normal limits. ASSESSMENT: 1. POSTOPERATIVE DAY 1 FOLLOWING EXPLORATORY LAPAROTOMY WITH LYSIS OF ADHESIONS CAUSING SMALL BOWEL OBSTRUCTION. 2. THE PATIENT vitals are STABLE AND AFEBRILE. 3. NO BOWEL MOVEMENT WAS REPORTED 4. MODERATELY HIGH ELEVATED NASOGASTRIC TUBE OUTPUT. 5. NORMAL BUN SINCE AND CREATININE. 6. LOW POTASSIUM. PLAN: 1. Clamp nasogastric tube tomorrow morning at 6 following complete fasting overnight; after 4 hours, I will check the residuals. If below 150 mL, the nasogastric can be removed. 2. Remove Vivas catheter. 3. Replace potassium 40 mEq. 4. We will check CBC and BMP in a.m. DICTATING PHYSICIAN: JAQUI WALLACE M.D. [id number] PHY#: [id number] ID: [id number] JOB#: [id number] ACCT: [id number] cc: > MTDD
[2016-06-24] MEDS: POTASSI CL 20 MEQ/50 ML RIDER 20 MEQ/50 ML RTUPB IV SCH (22:21)
[2016-06-25] MEDS: POTASSI CL 20 MEQ/50 ML RIDER 20 MEQ/50 ML RTUPB IV SCH (00:04)
[2016-06-25] MEDS: METRONIDAZOLE 500 MG/NS RTU 100 ML IV SCH ×4 (00:10→18:06)
[2016-06-25] MEDS: HYDROMORPHONE HCL INJ/PF 2 MG/ML AMPULE IV PRN ×3 (00:15→14:33)
[2016-06-25] MEDS: LEVOFLOXACIN 500 MG/D5W RTU 500 MG/100 ML RTUPB IV SCH (06:19)
[2016-06-25 07:23] LABS: ABSOLUTE EOSINOPHILS # (AUTO) 0.1 10^3/uL (0.0-0.6); ABSOLUTE LYMPHOCYTES (AUTO) 0.7 10^3/uL (0.5-4.7); ABSOLUTE NEUT (AUTO) 7.6 10^3/uL (1.7-8.2); BASOPHILS % (AUTO) 0.4 % (0-2); EOSINOPHILS % (AUTO) 1.1 % (0-6); HEMATOCRIT 32.4 % (36.0-47.0); HEMOGLOBIN 11.2 g/dL (12.0-15.5); HGB HCT DIFFERENCE 1.2; LYMPHOCYTES % (AUTO) 7.2 % (13-45); MEAN CORPUSCULAR HEMOGLOBIN 33.6 pg (27.0-33.4); MEAN CORPUSCULAR HGB CONC 34.7 g/dL (32.0-36.0); MEAN CORPUSCULAR VOLUME 97 fl (80-97); MONOCYTES % (AUTO) 10.4 % (3-13); RED BLOOD COUNT 3.34 10^6/uL (3.72-5.28); SEGMENTED NEUTROPHILS % (AUTO) 80.9 % (42-78); WHITE BLOOD COUNT 9.4 10^3/uL (4.0-10.5)
[2016-06-25 07:45] LABS: ANION GAP 15 (5-19); BLOOD UREA NITROGEN 8 mg/dL (7-20); CALCIUM 8.6 mg/dL (8.4-10.2); CARBON DIOXIDE 23 mmol/L (22-30); CHLORIDE 103 mmol/L (98-107); CREATININE RESULT 0.54 mg/dL (0.52-1.25); GLUCOSE 90 mg/dL (75-110); POTASSIUM 3.3 mmol/L (3.6-5.0); SODIUM 141.1 mmol/L (137-145)
[2016-06-25] MEDS: ENOXAPARIN SODIUM INJ 40 MG/0.4 ML DISP.SYRIN SUBCUT SCH (10:13)
[2016-06-25] MEDS: FLUTICASONE/SALMETEROL DISKUS 250-50 MCG/DOSE IH SCH ×2 (10:13→23:47)
[2016-06-25] MEDS: IPRATROPIUM/ALBUTEROL 120 PUFF/4 GM MDI IH SCH ×4 (10:13→23:47)
[2016-06-25] MEDS: LEVOTHYROXINE SODIUM 0.1 MG TABLET PO SCH (10:13)
[2016-06-25] MEDS: LEVOTHYROXINE SODIUM 0.075 MG TABLET PO SCH (10:13)
[2016-06-25] MEDS: FLUOXETINE HCL 20 MG CAPSULE PO SCH (10:13)
[2016-06-25] MEDS: POTASSI CL 20 MEQ/50 ML RIDER 50 ML IV SCH ×2 (11:02→13:11)
[2016-06-25] MEDS ORDERED: BISACODYL 10 MG SUPP.RECT PR ONE (20:00)
[2016-06-25] MEDS ORDERED: ONDANSETRON HCL INJ/PF 4 MG/2 ML SDV ONE (20:05)
[2016-06-25] MEDS: TRAMADOL HCL 50 MG TABLET PO PRN (22:27)
[2016-06-26] MEDS: TRAMADOL HCL 50 MG TABLET PO PRN (06:47)
[2016-06-26] MEDS: RINGERS SOLUTION,LACTATED 1,000 ML IV PRN (06:52)
[2016-06-26 07:19] LABS: ABSOLUTE LYMPHOCYTES (AUTO) 0.6 10^3/uL (0.5-4.7); ABSOLUTE MONOCYTES (AUTO) 0.9 10^3/uL (0.1-1.4); ABSOLUTE NEUT (AUTO) 9.4 10^3/uL (1.7-8.2); BASOPHILS % (AUTO) 0.3 % (0-2); EOSINOPHILS % (AUTO) 0.1 % (0-6); HEMATOCRIT 33.8 % (36.0-47.0); HEMOGLOBIN 11.7 g/dL (12.0-15.5); HGB HCT DIFFERENCE 1.3; LYMPHOCYTES % (AUTO) 5.5 % (13-45); MEAN CORPUSCULAR HGB CONC 34.6 g/dL (32.0-36.0); MEAN CORPUSCULAR VOLUME 95 fl (80-97); RED BLOOD COUNT 3.54 10^6/uL (3.72-5.28); RED CELL DISTRIBUTION WIDTH 15.1 % (11.5-14.0); SEGMENTED NEUTROPHILS % (AUTO) 86.1 % (42-78); WHITE BLOOD COUNT 10.9 10^3/uL (4.0-10.5)
[2016-06-26 07:22] LABS: ANION GAP 16 (5-19); BLOOD UREA NITROGEN 4 mg/dL (7-20); CALCIUM 8.4 mg/dL (8.4-10.2); CARBON DIOXIDE 26 mmol/L (22-30); CHLORIDE 98 mmol/L (98-107); CREATININE RESULT 0.44 mg/dL (0.52-1.25); GLUCOSE 121 mg/dL (75-110); SODIUM 139.6 mmol/L (137-145)
[2016-06-26] MEDS: POTASSIUM CHLORIDE 20 MEQ/50 ML RTU IV SCH ×4 (08:51→20:58)
[2016-06-26] MEDS: FLUTICASONE/SALMETEROL DISKUS 250-50 MCG/DOSE IH SCH ×2 (11:17→22:22)
[2016-06-26] MEDS: IPRATROPIUM/ALBUTEROL 120 PUFF/4 GM MDI IH SCH ×4 (11:36→22:28)
[2016-06-26] MEDS: FLUOXETINE HCL 20 MG CAPSULE PO SCH (11:36)
[2016-06-26] MEDS: LEVOTHYROXINE SODIUM 0.075 MG TABLET PO SCH (11:36)
[2016-06-26] MEDS: ENOXAPARIN SODIUM INJ 40 MG/0.4 ML DISP.SYRIN SUBCUT SCH (11:36)
[2016-06-26] MEDS: LEVOTHYROXINE SODIUM 0.1 MG TABLET PO SCH (11:36)
[2016-06-26] MEDS: ONDANSETRON HCL INJ/PF 4 MG/2 ML SDV IV PRN ×2 (11:56→22:22)
--- NOTE | 2016-06-26 12:53 | PROGRESS NOTE E ---
Progress Note NAME: SUDHEER MADERA : 1950 AGE: 65Y DATE: 06/26/2016 ROOM: 326 SUBJECTIVE: The patient has had 2 episodes of emesis yesterday and this morning. She feels weak this morning. She appears to be pale. Denies abdominal pain. She reports passing some stools and flatus last night following a Dulcolax suppository administration. OBJECTIVE: VITAL SIGNS: Low-grade temperature 99.2. Remaining vital signs within normal limits. Pulse 78, blood pressure 129/95. LUNGS: Clear bilaterally with few wheezing at the bases bilaterally. HEART: Regular rhythm and rate. ABDOMEN: Soft, nontender without peritoneal signs. Midline incision clean, dry, and intact. REVIEW OF LABORATORIES: White blood cell count 10.9, H and H 11 and 33, platelet count 274. Electrolytes: Potassium 3.0 and magnesium 1.3. BUN and creatinine within normal limits. ASSESSMENT: 1. POSTOP DAY NUMBER 4 FOLLOWING LAPAROTOMY, LYSIS OF ADHESIONS FOR SMALL BOWEL OBSTRUCTION. 2. PATIENT'S VITALS ARE STABLE WITH LOW-GRADE TEMPERATURE. 3. EMESIS X2. 4. BOWEL FUNCTION HAS PARTIALLY RETURNED FOLLOWING ADMINISTRATION OF DULCOLAX SUPPOSITORY. 5. PHYSICAL EXAM SHOWS A SLIGHTLY DISTENDED ABDOMEN WITH POSITIVE BOWEL SOUNDS. PLAN: 1. Obtain CT scan abdomen and pelvis is ordered with IV contrast (wait 3 hours prior to scanning the patient to identify possible recurrence of small bowel obstruction). 2. Obtain urine for urine culture for possible UTI. 3. Obtain chest x-ray to rule out pneumonia. 4. Replace potassium and magnesium. DICTATING PHYSICIAN: JAQUI WALLACE M.D. [id number] PHY#: [id number] ID: [id number] JOB#: [id number] ACCT: [id number] cc: > MTDD
[2016-06-26] MEDS ORDERED: MAGNESIUM SULFATE 1 GM/D5W 100 ML IV SCH (13:00)
[2016-06-26] MEDS ORDERED: ONDANSETRON HCL INJ/PF 4 MG/2 ML SDV IV ONE (13:00)
[2016-06-26 13:37] LABS: APPEARANCE,URINE CLEAR; BILIRUBIN,URINE NEGATIVE (NEGATIVE); GLUCOSE, URINE 50 mg/dL (NEGATIVE); KETONES,URINE 80 mg/dL (NEGATIVE); LEUKOCYTE ESTERASE,URINE TRACE (NEGATIVE); NITRITE,URINE NEGATIVE (NEGATIVE); PROTEIN,URINE NEGATIVE (NEGATIVE); URINE SPECIFIC GRAVITY 1.011; UROBILINOGEN,URINE NEGATIVE mg/dL (<2.0)
[2016-06-26] MEDS: HYDROMORPHONE HCL INJ/PF 2 MG/ML AMPULE IV PRN ×2 (16:07→23:30)
[2016-06-26 16:25] LABS: ANION GAP 15 (5-19); BLOOD UREA NITROGEN 3 mg/dL (7-20); CALCIUM 8.4 mg/dL (8.4-10.2); CARBON DIOXIDE 26 mmol/L (22-30); CHLORIDE 94 mmol/L (98-107); CREATININE RESULT 0.41 mg/dL (0.52-1.25); GLUCOSE 127 mg/dL (75-110); POTASSIUM 3.1 mmol/L (3.6-5.0); SODIUM 134.8 mmol/L (137-145)
[2016-06-26] MEDS: NORMAL SALINE 1000 ML 1,000 ML IV PRN (18:16)
[2016-06-27] MEDS: NORMAL SALINE 1000 ML 1,000 ML IV PRN ×3 (02:42→21:26)
[2016-06-27 06:25] LABS: ABSOLUTE MONOCYTES (AUTO) 1.3 10^3/uL (0.1-1.4); ABSOLUTE NEUT (AUTO) 11.6 10^3/uL (1.7-8.2); BASOPHILS % (AUTO) 0.4 % (0-2); EOSINOPHILS % (AUTO) 0.1 % (0-6); HEMATOCRIT 35.5 % (36.0-47.0); HGB HCT DIFFERENCE 0.5; MEAN CORPUSCULAR HGB CONC 33.8 g/dL (32.0-36.0); MEAN CORPUSCULAR VOLUME 95 fl (80-97); MONOCYTES % (AUTO) 9.5 % (3-13); RED BLOOD COUNT 3.76 10^6/uL (3.72-5.28); RED CELL DISTRIBUTION WIDTH 14.8 % (11.5-14.0); WHITE BLOOD COUNT 13.9 10^3/uL (4.0-10.5)
[2016-06-27 06:36] LABS: ANION GAP 14 (5-19); BLOOD UREA NITROGEN 2 mg/dL (7-20); CALCIUM 7.7 mg/dL (8.4-10.2); CARBON DIOXIDE 24 mmol/L (22-30); CHLORIDE 99 mmol/L (98-107); CREATININE RESULT 0.45 mg/dL (0.52-1.25); GLUCOSE 106 mg/dL (75-110); MAGNESIUM 1.7 mg/dL (1.6-2.3); SODIUM 136.5 mmol/L (137-145)
[2016-06-27] MEDS: POTASSIUM CHLORIDE 20 MEQ/50 ML RTU IV SCH ×2 (08:20→10:51)
[2016-06-27] MEDS: ONDANSETRON HCL INJ/PF 4 MG/2 ML SDV IV PRN ×2 (08:20→14:44)
[2016-06-27] MEDS: ENOXAPARIN SODIUM INJ 40 MG/0.4 ML DISP.SYRIN SUBCUT SCH (09:07)
[2016-06-27] MEDS: FLUOXETINE HCL 20 MG CAPSULE PO SCH (09:08)
[2016-06-27] MEDS: LEVOTHYROXINE SODIUM 0.075 MG TABLET PO SCH (09:08)
[2016-06-27] MEDS: LEVOTHYROXINE SODIUM 0.1 MG TABLET PO SCH (09:08)
[2016-06-27] MEDS: FLUTICASONE/SALMETEROL DISKUS 250-50 MCG/DOSE IH SCH ×2 (09:09→21:19)
[2016-06-27] MEDS: TRAMADOL HCL 50 MG TABLET PO PRN (09:55)
[2016-06-27] MEDS: IPRATROPIUM/ALBUTEROL 120 PUFF/4 GM MDI IH SCH ×4 (10:59→21:23)
[2016-06-27] MEDS: HYDROMORPHONE HCL INJ/PF 2 MG/ML AMPULE IV PRN ×2 (17:14→21:19)
--- NOTE | 2016-06-27 20:43 | PROGRESS NOTE E ---
Progress Note NAME: SUDHEER MADERA : 1950 AGE: 65Y DATE: 06/27/2016 ROOM: 326 The patient is 5 days postop from a laparotomy, lysis of adhesions, and bowel enterotomy for decompression of the small intestine. SUBJECTIVE: The patient had a small amount of liquid stool x4. She denies any current nausea or vomiting. She feels that her tummy is starting to move. OBJECTIVE: The patient's abdominal incision is healing without any evidence of infection. Positive bowel sounds. Mildly distended. No significant tenderness. DIAGNOSTIC DATA: White blood cell count of 14. Potassium of 3. KUB shows contrast now in the colon; however, there is still some dilation of the proximal small bowel. ASSESSMENT: 1. STATUS POST LYSIS OF ADHESIONS FOR BOWEL OBSTRUCTION, POSTOPERATIVE DAY #5. She is still waiting for full return of bowel function. It does seem that it is now improving. I would recommend ambulation, however, continue n.p.o. until we know the bowel function has fully returned before starting liquids. Recommend continue ambulation. 2. HYPOKALEMIA WHICH IS BEING REPLACED WITH POTASSIUM. 3. ELEVATED WHITE BLOOD CELL COUNT. We will need to continue to follow and look for any infection if it continues to be elevated such as urinary tract infection, C. difficile colitis, etc. PLAN: 1. Await return of bowel function. 2. Ambulate. 3. Potassium replacement. DICTATING PHYSICIAN: KY HOLDEN M.D. [id number] PHY#: [id number] [id number] JOB#: [id number] ACCT: [id number] cc: >
[2016-06-28] MEDS: HYDROMORPHONE HCL INJ/PF 2 MG/ML AMPULE IV PRN ×4 (03:31→19:20)
[2016-06-28] MEDS: NORMAL SALINE 1000 ML 1,000 ML IV PRN (06:01)
[2016-06-28 06:10] LABS: ABSOLUTE EOSINOPHILS # (AUTO) 0.1 10^3/uL (0.0-0.6); ABSOLUTE LYMPHOCYTES (AUTO) 1.1 10^3/uL (0.5-4.7); ABSOLUTE MONOCYTES (AUTO) 1.5 10^3/uL (0.1-1.4); ABSOLUTE NEUT (AUTO) 9.3 10^3/uL (1.7-8.2); BASOPHILS % (AUTO) 0.2 % (0-2); EOSINOPHILS % (AUTO) 0.5 % (0-6); HEMATOCRIT 32.5 % (36.0-47.0); HEMOGLOBIN 10.8 g/dL (12.0-15.5); HGB HCT DIFFERENCE -0.1; LYMPHOCYTES % (AUTO) 9.1 % (13-45); MEAN CORPUSCULAR HGB CONC 33.2 g/dL (32.0-36.0); MEAN CORPUSCULAR VOLUME 96 fl (80-97); MONOCYTES % (AUTO) 12.6 % (3-13); RED BLOOD COUNT 3.37 10^6/uL (3.72-5.28); RED CELL DISTRIBUTION WIDTH 15.3 % (11.5-14.0); SEGMENTED NEUTROPHILS % (AUTO) 77.6 % (42-78); WHITE BLOOD COUNT 11.9 10^3/uL (4.0-10.5)
[2016-06-28 06:29] LABS: ANION GAP 11 (5-19); BLOOD UREA NITROGEN 2 mg/dL (7-20); CALCIUM 7.9 mg/dL (8.4-10.2); CARBON DIOXIDE 27 mmol/L (22-30); CHLORIDE 101 mmol/L (98-107); CREATININE RESULT 0.44 mg/dL (0.52-1.25); GLUCOSE 82 mg/dL (75-110); POTASSIUM 3.1 mmol/L (3.6-5.0); SODIUM 138.7 mmol/L (137-145)
--- NOTE | 2016-06-28 09:10 | PDOC PROGRESS REPORT ---
Subjective Progress Note for:: 06/28/16 Subjective:: Feels well. Passing gas. Hungry. Physical Exam Vital Signs: Temp Pulse Resp BP Pulse Ox 98.3 F 86 18 126/75 H 95 06/28/16 07:26 06/28/16 08:15 06/28/16 07:26 06/28/16 07:26 06/28/16 07:26 Intake & Output 06/27/16 06/28/16 06/29/16 06:59 06:59 06:59 Intake Total 2500 3304 Output Total 1150 500 Balance 1350 2804 General appearance: PRESENT: no acute distress, cooperative Respiratory exam: PRESENT: clear to auscultation gustavo GI/Abdominal exam: PRESENT: other - Soft, minimally distended, active bowel sounds, wound clean dry and intact. Minimal tenderness. Results Laboratory Results: 06/28/16 05:09 06/28/16 05:09 06/28/16 06/28/16 05:09 05:09 WBC 11.9 H RBC 3.37 L Hgb 10.8 L Hct 32.5 L MCV 96 MCH 32.0 MCHC 33.2 RDW 15.3 H Plt Count 350 Seg Neutrophils % 77.6 Lymphocytes % 9.1 L Monocytes % 12.6 Eosinophils % 0.5 Basophils % 0.2 Absolute Neutrophils 9.3 H Absolute Lymphocytes 1.1 Absolute Monocytes 1.5 H Absolute Eosinophils 0.1 Absolute Basophils 0.0 Sodium 138.7 Potassium 3.1 L Chloride 101 Carbon Dioxide 27 Anion Gap 11 BUN 2 L Creatinine 0.44 L Est GFR ( Amer) > 60 Est GFR (Non-Af Amer) > 60 Glucose 82 Calcium 7.9 L Impressions: KUB X-Ray 06/22/16 00:00 IMPRESSION: NO CHANGE IN SMALL BOWEL DILATION. Abdomen X-Ray 06/22/16 07:00 IMPRESSION: NO CHANGE. FINDINGS OF SMALL BOWEL OBSTRUCTION. Abdomen/Pelvis CT 06/26/16 00:00 IMPRESSION: 1. Dilated small bowel loops tracking to the right lower quadrant where there appears to be relative transition to more normal caliber loops. Patient looks postoperative now. Findings may be related to persistent small bowel obstruction or ileus, however. There is mild ascites. Chest X-Ray 06/26/16 00:00 IMPRESSION: Small effusions. Acute Abdomen Series 03/29/17 06:00 IMPRESSION: Persistent small bowel obstructive pattern with mildly dilated loops and scattered air fluid levels.Small pleural effusions. Assessment & Plan - Diagnosis (1) Small bowel obstruction Is this a current diagnosis for this admission?: YesPlan: Doing well after lysis of adhesions. Passing gas. Abdominal exam looks good. Will start clear liquids today.
[2016-06-28] MEDS: ENOXAPARIN SODIUM INJ 40 MG/0.4 ML DISP.SYRIN SUBCUT SCH (09:18)
[2016-06-28] MEDS: IPRATROPIUM/ALBUTEROL 120 PUFF/4 GM MDI IH SCH ×4 (09:19→22:16)
[2016-06-28] MEDS: FLUTICASONE/SALMETEROL DISKUS 250-50 MCG/DOSE IH SCH ×2 (09:19→22:11)
[2016-06-28] MEDS: LEVOTHYROXINE SODIUM 0.075 MG TABLET PO SCH (09:20)
[2016-06-28] MEDS: LEVOTHYROXINE SODIUM 0.1 MG TABLET PO SCH (09:20)
[2016-06-28] MEDS: FLUOXETINE HCL 20 MG CAPSULE PO SCH (09:20)
[2016-06-28] MEDS: POTASSI CL 20 MEQ/50 ML RIDER 20 MEQ/50 ML RTUPB IV SCH ×2 (09:23→11:36)
[2016-06-28] MEDS: POTASSIUM CHLORIDE 10 MEQ TABLET.SA PO SCH ×2 (09:23→22:11)
[2016-06-28] MEDS: TRAMADOL HCL 50 MG TABLET PO PRN (22:15)
[2016-06-29] MEDS: TRAMADOL HCL 50 MG TABLET PO PRN ×2 (03:37→19:08)
[2016-06-29 06:05] LABS: ANION GAP 8 (5-19); CALCIUM 8.3 mg/dL (8.4-10.2); CARBON DIOXIDE 31 mmol/L (22-30); CHLORIDE 99 mmol/L (98-107); CREATININE RESULT 0.46 mg/dL (0.52-1.25); GLUCOSE 107 mg/dL (75-110); POTASSIUM 3.7 mmol/L (3.6-5.0); SODIUM 137.9 mmol/L (137-145)
[2016-06-29 06:07] LABS: BLOOD UREA NITROGEN < 2 mg/dL (7-20)
[2016-06-29] MEDS: HYDROMORPHONE HCL INJ/PF 2 MG/ML AMPULE IV PRN ×2 (07:43→13:46)
[2016-06-29] MEDS ORDERED: HYDROCODONE/ACETAMINOPHEN 5-325 MG TABLET PO PRN (07:53)
[2016-06-29 08:25] LABS: MAGNESIUM 1.5 mg/dL (1.6-2.3); PHOSPHORUS 1.7 mg/dL (2.5-4.5)
[2016-06-29] MEDS: IPRATROPIUM/ALBUTEROL 120 PUFF/4 GM MDI IH SCH ×4 (09:12→21:31)
[2016-06-29] MEDS: FLUTICASONE/SALMETEROL DISKUS 250-50 MCG/DOSE IH SCH ×2 (09:12→21:24)
[2016-06-29] MEDS: FLUOXETINE HCL 20 MG CAPSULE PO SCH (09:12)
[2016-06-29] MEDS: ENOXAPARIN SODIUM INJ 40 MG/0.4 ML DISP.SYRIN SUBCUT SCH (09:13)
[2016-06-29] MEDS: LEVOTHYROXINE SODIUM 0.1 MG TABLET PO SCH (09:13)
[2016-06-29] MEDS: LEVOTHYROXINE SODIUM 0.075 MG TABLET PO SCH (09:13)
[2016-06-29] MEDS: POTASSIUM CHLORIDE 10 MEQ TABLET.SA PO SCH (09:13)
--- NOTE | 2016-06-29 10:55 | EKG REPORT ---
SEVERITY:- OTHERWISE NORMAL ECG - SINUS RHYTHM LOW VOLTAGE IN FRONTAL LEADS : Confirmed by: Mary Zheng 29-Jun-2016 10:54:50
--- NOTE | 2016-06-29 20:49 | PROGRESS NOTE E ---
Progress Note NAME: SUDHEER MADERA : 1950 AGE: 65Y DATE: 06/29/2016 ROOM: 326 Patient is postoperative day 7 from lysis of adhesions for bowel obstruction. SUBJECTIVE: The patient had a bowel movement. She denied any nausea, vomiting. OBJECTIVE: Patient's abdominal incision is healing well without any evidence of infection. ASSESSMENT: STATUS POST EXPLORATORY LAPAROTOMY LYSIS OF ADHEIONS POSTOPERATIVE DAY 7 WITH BOWEL FUNCTION RETURNING. Will advance diet. PLAN: 1. Advance diet. 2. Mobilization of patient. DICTATING PHYSICIAN: [place] HOLDEN M.D. [id number] PHY#: [id number] [id number] JOB#: [id number] ACCT: [id number] cc: >
[2016-06-29] MEDS ORDERED: PHOSPHORUS #1 250 MG TABLET PO ONE (21:00)
[2016-06-29] MEDS ORDERED: CALCIUM CARBONATE 250 MG/VITAMIN D3 125 UNIT TABLET PO ONE (21:00)
[2016-06-29] MEDS ORDERED: MAGNESIUM OXIDE 400 MG TABLET PO ONE (21:00)
[2016-06-29] MEDS: HYDROCODONE/ACETAMINOPHEN 5-325 MG TABLET PO PRN (22:32)
[2016-06-30] MEDS: HYDROCODONE/ACETAMINOPHEN 5-325 MG TABLET PO PRN ×3 (04:53→14:10)
[2016-06-30] MEDS: IPRATROPIUM/ALBUTEROL 120 PUFF/4 GM MDI IH SCH ×2 (04:56→13:21)
[2016-06-30] MEDS: ENOXAPARIN SODIUM INJ 40 MG/0.4 ML DISP.SYRIN SUBCUT SCH (09:07)
[2016-06-30] MEDS: LEVOTHYROXINE SODIUM 0.075 MG TABLET PO SCH (09:08)
[2016-06-30] MEDS: LEVOTHYROXINE SODIUM 0.1 MG TABLET PO SCH (09:09)
[2016-06-30] MEDS: FLUTICASONE/SALMETEROL DISKUS 250-50 MCG/DOSE IH SCH (09:09)
[2016-06-30] MEDS: FLUOXETINE HCL 20 MG CAPSULE PO SCH (09:09)
--- NOTE | 2016-06-30 09:53 | PDOC PROGRESS REPORT ---
Subjective Progress Note for:: 06/30/16 Subjective:: Had BM and passing flatus Physical Exam Vital Signs: Temp Pulse Resp BP Pulse Ox 98.5 F 80 18 118/95 H 97 06/30/16 08:03 06/30/16 08:04 06/30/16 08:03 06/30/16 08:03 06/30/16 08:03 Intake & Output 06/29/16 06/30/16 07/01/16 06:59 06:59 06:59 Intake Total 2923 1457 Output Total 1100 800 Balance 1823 657 Weight 70.9 kg GI/Abdominal exam: PRESENT: distended - nondistended, soft - nontneder and incision clean and dry Results Laboratory Results: 06/28/16 05:09 06/29/16 04:52 Impressions: KUB X-Ray 06/22/16 00:00 IMPRESSION: NO CHANGE IN SMALL BOWEL DILATION. Abdomen X-Ray 06/22/16 07:00 IMPRESSION: NO CHANGE. FINDINGS OF SMALL BOWEL OBSTRUCTION. Abdomen/Pelvis CT 06/26/16 00:00 IMPRESSION: 1. Dilated small bowel loops tracking to the right lower quadrant where there appears to be relative transition to more normal caliber loops. Patient looks postoperative now. Findings may be related to persistent small bowel obstruction or ileus, however. There is mild ascites. Chest X-Ray 06/26/16 00:00 IMPRESSION: Small effusions. Acute Abdomen Series 06/27/16 06:00 IMPRESSION: Persistent small bowel obstructive pattern with mildly dilated loops and scattered air fluid levels.Small pleural effusions.
[2016-06-30] MEDS ORDERED: PHOSPHORUS #1 250 MG TABLET PO SCH (10:00)
[2016-06-30] MEDS ORDERED: CALCIUM CARBONATE 250 MG/VITAMIN D3 125 UNIT TABLET PO SCH (10:00)
[2016-06-30] MEDS ORDERED: MAGNESIUM OXIDE 400 MG TABLET PO SCH (10:00)
[2016-06-30 10:29] VITALS: BP 135/75
== END 2016-06-30 15:05 | disposition home or self-care (01) | DRG 337 ==
LOC: ER 16:04 → 2N 06-19 01:50 → EH 06-19 02:27 → UNDOADMIN 06-19 02:27 → EH 06-19 08:09 → 2N 06-19 08:09 → 3S 06-26 12:42
PROVIDERS: ATTEND Surgery
PROC: 0D9A0ZZ Drainage of Jejunum, Open Approach (ICD-10-PCS; 2016-06-22)
PROC: 0WJP4ZZ Inspection of Gastrointestinal Tract, Percutaneous Endoscopic Approach (ICD-10-PCS; 2016-06-22)
PROC: 0DN80ZZ Release Small Intestine, Open Approach (ICD-10-PCS; principal; 2016-06-22 16:30)
DX: K56.5 Intestinal adhesions [bands] with obstruction (postinfection) (principal); Z53.31 Laparoscopic surgical procedure converted to open procedure; E87.6 Hypokalemia; R11.2 Nausea with vomiting, unspecified; D72.829 Elevated white blood cell count, unspecified; Z85.038 Personal history of other malignant neoplasm of large intestine; Z90.49 Acquired absence of other specified parts of digestive tract; Z88.0 Allergy status to penicillin; F17.200 Nicotine dependence, unspecified, uncomplicated
CPT/HCPCS: 36415; 71010; 71020; 74000; 74020; 74022; 74177; 790; 80048; 80053; 81001; 82330; 83735; 84100; 85025; 93005; 93010; 94640; 96361; 96374; 99285; J0131; J0330; J1100; J1170; J1650; J1956; J2250; J2270; J2405; J2704; J3010; J3475; J3480; J3490; J7030; J7120; J7620; S0028; S0119